=== PATIENT | male | born 1985 | race Caucasian/White ===

== ENCOUNTER 2022-01-24 22:58 | Emergency (ER) | payer BC, MEDICAID, SELFPAY ==
[~2022-01-24] VITALS: Ht 175.3 cm; Wt 102.3 kg
[2022-01-24 23:01] VITALS: BP 129/79
[2022-01-25] MEDS ORDERED: HYDR-3713 PO (16:00)
[2022-01-25] MEDS ORDERED: NAPR-837 PO (16:00)
[2022-01-25] MEDS ORDERED: FLOM0.4C39 PO (16:00)
[2022-01-25] MEDS ORDERED: ONDA4TAB6 PO (17:12)
== END 2022-01-25 03:14 | disposition left against medical advice (07) ==
LOC: M ED 22:58
DX: Z53.21 Procedure and treatment not carried out due to patient leaving prior to being seen by health care provider (principal)

== ENCOUNTER 2022-01-25 12:48 | Emergency (ER) | payer OTHER ==
[~2022-01-25] VITALS: Ht 175.3 cm; Wt 101.6 kg
[2022-01-25 13:22] LABS: BASO % 0.4 % (0.0-1.0); EOS # 0.2 10^3/uL (0.0-0.5); EOS % 2.6 % (0.0-3.0); HEMATOCRIT 47.8 % (42.0-52.0); HEMOGLOBIN 15.6 g/dl (13.5-17.5); LYMPH # 1.8 10^3/uL (1.5-5.0); MEAN CORPUSCULAR HEMOGLOBIN 28.7 pg (27.0-33.0); MEAN CORPUSCULAR HGB CONC 32.6 g/dl (32.0-36.5); MONO # 0.3 10^3/uL (0.0-0.8); MONO % 4.2 % (2.0-8.0); NEUTROPHILS # 4.6 10^3/uL (1.5-8.5); NEUTROPHILS % 66.4 % (36.0-66.0); PLATELET COUNT, AUTOMATED 277 10^3/uL (150-450); RED BLOOD COUNT 5.43 10^6/uL (4.30-6.10)
[2022-01-25 13:52] LABS: ALBUMIN 3.8 GM/DL (3.2-5.2); ALT/SGPT 24 U/L (12-78); BILIRUBIN,TOTAL 1.1 MG/DL (0.2-1.0); BLOOD UREA NITROGEN 13 MG/DL (7-18); CALCIUM LEVEL 9.7 MG/DL (8.5-10.1); CARBON DIOXIDE LEVEL 30 MEQ/L (21-32); CHLORIDE LEVEL 107 MEQ/L (98-107); CREATININE FOR GFR 1.04 MG/DL (0.70-1.30); GLOMERULAR FILTRATION RATE > 60.0 (>60); GLUCOSE, FASTING 109 MG/DL (70-100); POTASSIUM SERUM 4.9 MEQ/L (3.5-5.1); SODIUM LEVEL 140 MEQ/L (136-145)
[2022-01-25] MEDS ORDERED: KETOROLAC 30 MG/ML 1ML VIAL IV ONE (14:00)
[2022-01-25] MEDS ORDERED: ONDANSETRON 4MG 2ML VIAL IV ONE (14:00)
[2022-01-25] MEDS ORDERED: NS 1,000 ML IV ONE (14:05)
[2022-01-25] MEDS ORDERED: MORPHINE 4 MG/ML 1ML VIAL/SYRINGE IV ONE (15:15)
[2022-01-25] MEDS ORDERED: METOCLOPRAMIDE INJ 10MG/2ML VIAL (J2765 PER 1) IV ONE (15:15)
[2022-01-25] MEDS ORDERED: TAMSULOSIN 0.4 MG CAP PO ONE (15:55)
[2022-01-25] MEDS ORDERED: NAPR-837 PO (16:00)
[2022-01-25] MEDS ORDERED: FLOM0.4C39 PO (16:00)
[2022-01-25] MEDS ORDERED: HYDR-3713 PO (16:00)
[2022-01-25] MEDS ORDERED: ONDA4TAB6 PO (17:12)
[2022-01-25 17:22] VITALS: BP 126/73
== END 2022-01-25 17:32 | disposition home or self-care (01) ==
LOC: M ED 12:48
DX: N13.2 Hydronephrosis with renal and ureteral calculous obstruction (principal); K21.9 Gastro-esophageal reflux disease without esophagitis; Z79.899 Other long term (current) drug therapy
CPT/HCPCS: 36415; 74176; 80047; 80053; 81000; 81015; 85025; 96361; 96374; 96375; 99284; J1885; J2270; J2405; J2765